=== PATIENT | female | born 1945 | race Caucasian/White ===

== ENCOUNTER 2019-09-14 08:29 | Inpatient (IN) ==
[2019-09-14] MEDS ORDERED: IOPAMIDOL 100 ML BOTTLE IV ONE (08:30)
[2019-09-14] MEDS ORDERED: 0.9 % SODIUM CHLORIDE 1,000 ML IV ONE (08:32)
[2019-09-14] MEDS ORDERED: DIPH,PERTUSS(ACELL),TET VAC/PF 0.5 ML SYRINGE IM ONE (08:33)
[2019-09-14 09:16] LABS: Hematocrit 38.3 % (36.0-48.0); Hemoglobin 12.5 g/dL (12.0-15.0); Mean Cell Volume 87.6 fL (80.0-100.0); Mean Corpuscular HGB Conc 32.7 g/dL (31.0-36.0); Mean Platelet Volume 7.8 fL (7.4-10.4); Platelet Count 224 K/mcL (140-440); RBC 4.37 M/mcL (4.00-5.20); Red Cell Distribution Width 14.7 % (11.5-14.5); WBC 7.3 K/mcL (4.5-11.0)
--- NOTE | 2019-09-14 09:31 | Emergency Department Note ---
Dizziness HPI - General Chief Complaint: Dizziness Stated Complaint: Dizziness, fall Time Seen by Provider: 09/14/19 09:24 Source: patient Mode of arrival: wheelchair Limitations: no limitations - History of Present Illness HPI Narrative: Patient has felt dizzy and lightheaded for the last several days and has fallen a couple of times. She does feel like she injured her left knee with the last fall and has some pain about the knee. Denies any other injuries. She admits not eating or drinking much and that is confirmed by the daughter. She says the last time she felt this way she had a UTI. She said no chest pain cough or shortness of breath and no focal neurologic symptoms. Also no vertigo or headache. - Related Data Home Medications Medication Instructions Recorded Confirmed aspirin 81 mg tablet,delayed 81 mg PO QDAY tab 05/15/15 09/14/19 release lactobacillus combination no.4 3 3,000 mmu cells PO QDAY cap 05/15/15 08/12/19 billion cell capsule cetirizine 10 mg tablet 10 mg PO QAM tab 05/29/17 08/12/19 docusate sodium 50 mg capsule 100 mg PO QDAY cap 07/31/17 08/12/19 multivitamin 1 tab PO QDAY 01/23/18 08/12/19 metoprolol succinate 25 mg 25 mg PO QHS tab 12/10/18 09/14/19 tablet,extended release 24 hr tumeric PO 05/11/19 08/12/19 [id number] 333 mg PO tab 06/09/19 08/12/19 mg-1.7 mg chewable tablet calcium carbonate 500 mg calcium 500 mg PO QDAY tab 06/22/19 08/12/19 (1,250 mg) tablet magnesium 250 mg tablet 250 mg PO QDAY 06/22/19 08/12/19 Chlorthalidone [Hygroton] 25 mg PO DAILY 09/14/19 09/14/19 Previous Rx's Medication Instructions Recorded ferrous sulfate 142 mg (45 mg 142 mg PO QDAY #60 tab 05/05/19 iron) tablet,extended release omeprazole magnesium 20 mg 20 mg PO QDAY #30 cap 06/09/19 capsule,delayed release levothyroxine 50 mcg tablet 50 mcg PO QDAY #90 tab 07/25/19 amlodipine 2.5 mg tablet 2.5 mg PO QDAY PRN #30 tab 07/12/19 cholecalciferol (vitamin D3) 2,000 2,000 unit PO QDAY #100 cap 08/12/19 unit capsule Allergies Allergy/AdvReac Type Severity Reaction Status Date / Time Cortisone Allergy Intermediate Rash Verified 09/14/19 08:31 cephalexin Allergy Unknown Verified 09/14/19 08:31 levofloxacin [From Levaquin] Allergy Itching Verified 09/14/19 08:31 sulfamethoxazole Allergy Rash Verified 09/14/19 08:31 [From Septra] trimethoprim [From Septra] Allergy Rash Verified 09/14/19 08:31 Hydroxychloroquine AdvReac Intermediate facial Verified 09/14/19 08:31 edema acetaminophen AdvReac Mild Other Verified 09/14/19 08:31 [From Lorcet (hydrocodone)] hydrocodone AdvReac Mild Other Verified 09/14/19 08:31 [From Lorcet (hydrocodone)] Review of Systems All systems ED: reviewed and negative except as stated. Past Medical History - Past Medical History PMF Narrative: Medical History (Last Reviewed 08/12/19 @ 09:05 by Jose A Lehman MD) Secondary hyperparathyroidism of renal origin (Chronic) Iron deficiency anemia due to chronic blood loss (Chronic) Iron deficiency anemia (Chronic) CREST (calcinosis, Raynaud's phenomenon, esophageal dysfunction, sclerodactyly, telangiectasia) (Chronic) Generalized weakness (Acute) Ankle fracture, left (Chronic) Hx of colonic polyp (Chronic) Closed fracture of tarsal and metatarsal bones of left foot (Chronic) Hemorrhagic condition (Chronic) Ventral hernia (Chronic) Hyperlipidemia (Chronic) Essential hypertension (Chronic) Hypothyroidism (acquired) (Chronic) Osteopenia (Chronic) Menopausal and postmenopausal disorder (Chronic) Pulmonary embolism (Chronic) Raynauds syndrome (Chronic) Chronic kidney disease (CKD) stage G3a/A1, moderately decreased glomerular filtration rate (GFR) between 45-59 mL/min/1.73 square meter and albuminuria creatinine ratio less than 30 mg/g (Chronic) CKD (chronic kidney disease), stage III (Chronic) Scleroderma (Chronic) Renal dysfunction (Chronic) Hypertension (Chronic) DJD (degenerative joint disease) (Chronic) Hypertensive renal disease (Chronic) Long-term use of immunosuppressant medication (Acute) Cough (Chronic) Past Surgical History (Last Reviewed 05/05/19 @ 16:09 by Jose A Lehman MD) H/O adenoidectomy (Chronic) History of bladder surgery (Chronic) H/O breast biopsy (Chronic) Hx of breast biopsy (Chronic) History of conization of cervix (Chronic) H/O ventral hernia repair (Chronic) History of total abdominal hysterectomy (Chronic) H/O tubal ligation (Chronic) Hx of tonsillectomy (Chronic) History of colonoscopy (Chronic 05/17/17) History of esophagogastroduodenoscopy (EGD) (Chronic 05/17/17) Family History (Last Reviewed 05/05/19 @ 16:09 by Jose A Lehman MD) Father Atherosclerosis of coronary artery Gout Unknown Alzheimer's disease Chronic obstructive pulmonary disease Malignant hypertension Osteoporosis Mother Diabetes mellitus Essential hypertension Osteoporosis Cerebrovascular accident Medical history: Reports: hyperlipidemia, hypertension, renal disease, thyroid disease Surgical history ED: Reports: orthopedic, other - Social History smoking status: Never smoker Alcohol use: Reports: None Drug use: Reports: none Physical Exam Limitations: no limitations General appearance: alert Head: atraumatic, normocephalic Eye: Present: normal appearance, EOMI ENT: Present: normal exam Neck: Present: normal inspection Chest: Present: normal inspection Respiratory: Present: normal lung sounds bilaterally Cardiovascular: Present: regular rate, normal rhythm, normal heart sounds Abdominal: Present: soft. Absent: distention, tenderness Extremities: Present: other (Mild tenderness about the left knee without any swelling.) Motor strength - LUE: 5/5 Motor strength - RUE: 5/5 Psychiatric: Present: normal affect Skin: Present: warm, dry Course Vital Signs Temperature 99.0 F 09/14/19 08:29 Pulse Rate 84 09/14/19 08:29 Respiratory Rate 18 09/14/19 08:29 Blood Pressure 167/102 09/14/19 08:29 Pulse Oximetry (%) 100 09/14/19 08:29 Temperature 97.8 F 09/14/19 09:57 Pulse Rate 91 H 09/14/19 14:02 Respiratory Rate 16 09/14/19 14:02 Blood Pressure 166/70 09/14/19 14:02 Pulse Oximetry (%) 99 09/14/19 14:02 Dizziness - MDM Narrative Medical decision making narrative: This patient has a minor UTI and extensive sinusitis and multiple sinuses on her CT scan. CTA of head and neck were unremarkable with no impairment to cerebellar circulation. However she continues to feel pretty dizzy and her blood pressure has remained quite high. We have treated her with labetalol. She got Rocephin IV for her urinary tract infection and sinusitis. She will be admitted to the hospital by Dr. Momin. - Lab Data Lab results reviewed: Yes I reviewed the patient's lab results. Result diagrams: 09/14/19 08:41 09/14/19 08:41 Lab Results 09/14/19 09/14/19 09/14/19 Range/Units 08:41 08:41 10:00 WBC 7.3 (4.5-11.0) K/mcL RBC 4.37 (4.00-5.20) M/mcL Hgb 12.5 (12.0-15.0) g/dL Hct 38.3 (36.0-48.0) % MCV 87.6 (80.0-100.0) fL MCH 28.7 (26.0-34.0) pg MCHC 32.7 (31.0-36.0) g/dL RDW 14.7 H (11.5-14.5) % Plt Count 224 (140-440) K/mcL MPV 7.8 (7.4-10.4) fL Total Counted 100 Seg Neutrophils % 73 (38-78) % Band Neutrophils % 1 (0-10) % Lymphocytes % 15 (15-49) % Monocytes % (Manual) 7 (1-12) % Eosinophils % (Manual) 4 (0-7) % Platelet Estimate Normal (NORMAL) RBC Morphology Normal (NORMAL) VBG Lactic Acid (0.5-2.0) mmol/L Sodium 141 (133-145) mmol/L Potassium 4.4 (3.3-5.1) mmol/L Chloride 102 (96-108) mmol/L Carbon Dioxide 25 (22-30) mmol/L Anion Gap 14.0 (8-16) BUN 39 H (8-23) mg/dl Creatinine 1.3 H (0.6-1.1) mg/dl GFR Calculation 40 Glucose 132 H (70-105) mg/dL Calcium 9.9 (8.6-10.4) mg/dl Total Bilirubin 0.3 (0.0-1.0) mg/dL AST 18 (0-37) U/l ALT 14 (0-40) U/l Alkaline Phosphatase 49 (39-117) U/L Troponin T (0-0.03) ng/ml Total Protein 7.9 (5.9-8.4) gm/dL Albumin 4.6 (3.2-5.2) gm/dL Globulin 3.3 (2.2-3.7) gm/dL Albumin/Globulin Ratio 1.4 (1.0-2.3) Urine Color Straw Urine Appearance Clear Urine pH 7.0 (5.0-9.0) Ur Specific [place] 1.010 (1.000-1.035) Urine Protein Neg (NEG) mg/dL Urine Glucose (UA) Negative (NEG) mg/dL Urine Ketones Neg (NEG) mg/dL Urine Occult Blood 0.03 A (<0.03) mg/dL Urine Nitrate Neg (NEG) Urine Bilirubin Neg (NEG) mg/dL Urine Urobilinogen Neg (NEG) mg/dL Ur Leukocyte Esterase 75 A (NEG) /uL Urine RBC 2 H (0-1) /hpf Urine WBC 15 H (0-4) /hpf Ur Squamous Epith Cells 0 (0-4) /hpf Ur Transition Epith Cell < 1 (0-2) /hpf Urine Bacteria Few A (0) /hpf Urine Mucus Few (0) /hpf Ur Culture Indicated? Yes 09/14/19 09/14/19 Range/Units 12:59 Unknown WBC (4.5-11.0) K/mcL RBC (4.00-5.20) M/mcL Hgb (12.0-15.0) g/dL Hct (36.0-48.0) % MCV (80.0-100.0) fL MCH (26.0-34.0) pg MCHC (31.0-36.0) g/dL RDW (11.5-14.5) % Plt Count (140-440) K/mcL MPV (7.4-10.4) fL Total Counted Seg Neutrophils % (38-78) % Band Neutrophils % (0-10) % Lymphocytes % (15-49) % Monocytes % (Manual) (1-12) % Eosinophils % (Manual) (0-7) % Platelet Estimate (NORMAL) RBC Morphology (NORMAL) VBG Lactic Acid 1.3 (0.5-2.0) mmol/L Sodium (133-145) mmol/L Potassium (3.3-5.1) mmol/L Chloride (96-108) mmol/L Carbon Dioxide (22-30) mmol/L Anion Gap (8-16) BUN (8-23) mg/dl Creatinine (0.6-1.1) mg/dl GFR Calculation Glucose (70-105) mg/dL Calcium (8.6-10.4) mg/dl Total Bilirubin (0.0-1.0) mg/dL AST (0-37) U/l ALT (0-40) U/l Alkaline Phosphatase (39-117) U/L Troponin T < 0.01 (0-0.03) ng/ml Total Protein (5.9-8.4) gm/dL Albumin (3.2-5.2) gm/dL Globulin (2.2-3.7) gm/dL Albumin/Globulin Ratio (1.0-2.3) Urine Color Urine Appearance Urine pH (5.0-9.0) Ur Specific [place] (1.000-1.035) Urine Protein (NEG) mg/dL Urine Glucose (UA) (NEG) mg/dL Urine Ketones (NEG) mg/dL Urine Occult Blood (<0.03) mg/dL Urine Nitrate (NEG) Urine Bilirubin (NEG) mg/dL Urine Urobilinogen (NEG) mg/dL Ur Leukocyte Esterase (NEG) /uL Urine RBC (0-1) /hpf Urine WBC (0-4) /hpf Ur Squamous Epith Cells (0-4) /hpf Ur Transition Epith Cell (0-2) /hpf Urine Bacteria (0) /hpf Urine Mucus (0) /hpf Ur Culture Indicated? - Radiology Data Radiology results reviewed: Yes I reviewed the patient's radiology results. Disposition Pt seen by [facility]/PA only: No Clinical Impression: UTI (urinary tract infection), Sinusitis, Dizziness Disposition: Xfer As Outpt/Obs ([facility]) Condition: Good Referrals: Ángel Cabrera PA-C [Primary Care Provider] - Time of Disposition: 14:45
[2019-09-14 09:36] LABS: ALT/SGPT 14 U/l (0-40); AST/SGOT 18 U/l (0-37); Albumin 4.6 gm/dL (3.2-5.2); Albumin/Globulin Ratio 1.4 (1.0-2.3); Alkaline Phosphatase 49 U/L (39-117); Bilirubin,Total 0.3 mg/dL (0.0-1.0); Blood Urea Nitrogen 39 mg/dl (8-23); Calcium 9.9 mg/dl (8.6-10.4); Carbon Dioxide 25 mmol/L (22-30); Chloride 102 mmol/L (96-108); Globulin 3.3 gm/dL (2.2-3.7); Glomerular Filtration Rate 40; Glucose 132 mg/dL (70-105)
[2019-09-14] MEDS ORDERED: LABETALOL 5 MG/ML ML IV ONE ×2 (09:49→13:40)
[2019-09-14] MEDS ORDERED: ACETAMINOPHEN 325 MG TABLET PO ONE (09:59)
[2019-09-14 10:03] LABS: Band Neutrophils % 1 % (0-10); Eosinophils % (Manual) 4 % (0-7); Lymphocytes % 15 % (15-49); Monocytes % (Manual) 7 % (1-12); Platelet Estimate NORMAL (NORMAL); RBC Morphology NORMAL (NORMAL); Segmented Neutrophils % 73 % (38-78)
--- NOTE | 2019-09-14 10:35 | XRay Report ---
CLINICAL INFORMATION: Fall. Abrasion. Knee pain. TECHNIQUE: AP, oblique, crosstable lateral left knee COMPARISON: None. FINDINGS: No left knee fracture. No plain film evidence for significant joint effusion. No lipohemarthrosis. No osteochondral lesion. Moderate degenerative narrowing of the patellofemoral joint. Mild degenerative narrowing of the medial femoral tibial joint. IMPRESSION: 1. Degenerative joint disease 2. No acute abnormality Interpreted and Authenticated by: Doron Padgett 09/14/19
[2019-09-14 11:06] LABS: Appearance,Urine CLEAR; Bacteria,Urine FEW /hpf (0); Bilirubin,Urine NEG (NEG); Color,Urine STRAW; Culture Indicated,Urine YES; Glucose,Urine (UA) NEGATIVE (NEG); Ketones,Urine NEG (NEG); Leukocyte Esterase,Urine 75 /uL (NEG); Mucus,Urine FEW /hpf (0); Nitrate,Urine NEG (NEG); Protein,Urine NEG (NEG); Urine Blood 0.03 mg/dL (<0.03); Urine RBC 2 /hpf (0-1); Urine Squamous Epithelial Cell 0 /hpf (0-4); Urine Transitional Epi Cells < 1 /hpf (0-2); Urine WBC 15 /hpf (0-4); Urobilinogen,Urine NEG (NEG)
[2019-09-14] MEDS ORDERED: NITROFURANTOIN SR 100 MG CAPSULE PO ONE (12:20)
[2019-09-14] MEDS ORDERED: LACTATED RINGERS 1,000 ML IV ONE (12:32)
--- NOTE | 2019-09-14 13:08 | Cat Scan Report ---
CLINICAL INFORMATION: Dizziness TECHNIQUE: Axial noncontrast enhanced images through the brain. Sagittal and coronal reformatted images COMPARISON: Previous CT scan of the paranasal sinuses dated 11/07/2016 FINDINGS: No acute intracranial hemorrhage. No subdural hemorrhage or subarachnoid hemorrhage. Intra-axial hematoma. No focal intra-axial attenuation abnormality or localized mass effect. No midline shift. Brain volume is within normal limits. Brainstem and cerebellum are negative. Basilar cisterns are normal. There is opacification of right frontal sinuses. There is inflammatory disease within the ethmoid sinuses and sphenoid sinuses. There is an air-fluid level in the right maxillary sinus. There is soft tissue abnormality filling the left maxillary sinus. Appearance is consistent with extensive sinusitis. Temporal bones are negative. No calvarial fracture. No lytic lesion. IMPRESSION: 1. Sinusitis 2. No intracranial abnormality. Interpreted and Authenticated by: Doron Padgett 09/14/19
--- NOTE | 2019-09-14 13:19 | Cat Scan Report ---
CLINICAL INFORMATION: Dizziness TECHNIQUE: Intravenous contrast material was injected. Routine CTA of the neck and head performed. Sagittal and coronal reformatted images. MPR reformatted images COMPARISON: Brain CT scan dated 09/14/2019 FINDINGS: There is calcified atherosclerotic plaque in the aortic arch. There is mild noncalcified plaque. No stenosis at the origin of the left subclavian artery, left common carotid artery, not a minor, right common carotid artery, right subclavian artery. Left vertebral artery origin is normal. Right vertebral artery is a small caliber vessel. No stenosis. Vertebral arteries are patent. There is no dissection or occlusion. Basilar artery is negative. No stenosis. There is calcified plaque at the origin of the left internal carotid artery. There is no hemodynamically significant stenosis. There is calcified and noncalcified plaque at the origin of the right internal carotid artery. No stenosis of greater than 50% diameter. No evidence for ulceration. Petrous and cavernous segments of the internal carotid arteries are patent and normal. Supraclinoid segments are normal. M1 segments and middle cerebral arteries and A1 segments anterior cerebral arteries are negative. P1 segments posterior cerebral arteries are negative. Right posterior communicating artery is patent. No intracranial aneurysm. No arteriovenous malformation. Extensive sinusitis changes of the previously described. There is an air-fluid level in the right maxillary sinus consistent with acute maxillary sinusitis. Inflammatory disease within frontal, ethmoid, sphenoid, and maxillary sinuses bilaterally. No cervical soft tissue mass. Lung apices are negative. IMPRESSION: 1. Atherosclerotic plaque as above. There is calcified and noncalcified plaque at the origin of the right internal carotid artery. There is calcified plaque at the origin of the left internal carotid artery 2. No hemodynamically significant stenosis. No evidence for dissection or occlusion 3. Sinusitis Interpreted and Authenticated by: Doron Padgett 09/14/19
[2019-09-14] MEDS ORDERED: cefTRIAXone 1 GM VIAL IV ONE (13:32)
--- NOTE | 2019-09-14 15:29 | Internal Med History&Physical ---
Medical - H&P: HPI Patient information: Note initiated : 09/14/19 at 3:28 pm Service Date, if different from initiated Date: [] Patient: Carmen Fleming a 74 y/o F admitted on for Dizziness, fall. Chief Complaint: [] Chief complaint: Dizziness and shaky. Fall History of present illness: Ms. Fleming is a 74 year old F with a history of scleroderma/hypertension and chronic kidney disease who usually follows up with arthritis Ward and nephrology for medical issues. Patient has been in her baseline state of health with suboptimally controlled hypertension. Over the last couple of days patient has been getting progressively dizzy. She sustained a fall injuring her left knee. However there is no loss of consciousness or seizure-like episode. She further denied thunderclap head ache/chest palpitation or chest pain during that episode. She describes her symptoms as weakness and lightheadedness with minimal head movement but no vertigo or spinning sensation or associated hearing loss. She denies prior similar episodes. Dizziness have progressed to the point she could barely function and prompted her to come to the ER. Initial work-up in the ER was essentially unremarkable with a negative CT head/CT angiogram head and neck. Although her blood pressures remained elevated over 200-220. She received 2 doses of labetalol with resultant improvement in systolics around 190s. Her dizziness since has improved. Subsequently hospitalist service was consulted in the setting of persistent hypertension and dizziness. At the time of evaluation patient is accompanied with her daughter. She was able to answer most of the question and endorsed to history as above. She d enies recent NSAID intake or missing her regular medications. She endorses to suboptimally controlled hypertension when her systolics remains around 1 50-1 60. She says any time she has a blood pressure around 120 or lower she gets lightheaded in the past had had a fainting episode. She is currently on amlodipine 2.5/metoprolol 25 dose of which were lowered after the episode of syncope in the past. Other than that she denies fever, chills, lower extremity swelling, diarrhea, dysuria Review of systems A 10 point review of system was performed and is negative except for one discussed above Medical - H&P: PMH Medical history: Iron deficiency anemia due to chronic blood loss (Chronic) EGD with mild gastritis, no H. pylorie or pathologic changes suggestive of CREST On supplimental Fe Iron deficiency anemia (Chronic) CREST (calcinosis, Raynaud's phenomenon, esophageal dysfunction, sclerodactyly, telangiectasia) (Chronic) Generalized weakness (Acute) Ankle fracture, left (Chronic) Hx of colonic polyp (Chronic) Closed fracture of tarsal and metatarsal bones of left foot (Chronic) Hemorrhagic condition (Chronic) Ventral hernia (Chronic) Hyperlipidemia (Chronic) Essential hypertension (Chronic) BP elevated today has been normal before she will keep a BP log, she will call us if the BP is more than 140/90 persis tently will follow and optimize low sodium diet discussed ct propranolol Hypothyroidism (acquired) (Chronic) Osteopenia (Chronic) Menopausal and postmenopausal disorder (Chronic) Pulmonary embolism (Chronic) Raynauds syndrome (Chronic) Chronic kidney disease (CKD) stage G3a/A1, moderately decreased glomerular filtration rate (GFR) between 45-59 mL/min/1.73 square meter and albuminuria creatinine ratio less than 30 mg/g (Chronic) CKD (chronic kidney disease), stage III (Chronic) Scleroderma (Chronic) Renal dysfunction (Chronic) Hypertension (Chronic) BP elevated at home, not at goal in the office today as well will start with ambulatory BP monitoring will follow and optimize meds as needed DJD (degenerative joint disease) (Chronic) Hypertensive renal disease (Chronic) Long-term use of immunosuppressant medication (Acute) Cough (Chronic) Surgical History H/O adenoidectomy (Chronic) History of bladder surgery (Chronic) H/O breast biopsy (Chronic) left Hx of breast biopsy (Chronic) right History of conization of cervix (Chronic) post cervical BX no cancer H/O ventral hernia repair (Chronic) 3 times History of total abdominal hysterectomy (Chronic) H/O tubal ligation (Chronic) Hx of tonsillectomy (Chronic) History of colonoscopy (Chronic 05/17/17) History of esophagogastroduodenoscopy (EGD) (Chronic 05/17/17) Family History Father , 87 years old Atherosclerosis of coronary artery Gout Unknown Alzheimer's disease Chronic obstructive pulmonary disease Malignant hypertension Osteoporosis Mother Diabetes mellitus Essential hypertension Osteoporosis Cerebrovascular accident Social History marital status: education level: college smoking status: Never smoker alcohol intake frequency: does not drink substance use type: does not use Medical - H&P: Meds Home Medications Medication Instructions Recorded Confirmed Type aspirin 81 mg tablet,delayed 81 mg PO QDAY tab 05/15/15 09/14/19 History release docusate sodium 50 mg capsule 100 mg PO QDAY cap 07/31/17 09/14/19 History multivitamin 1 tab PO QDAY 01/23/18 09/14/19 History metoprolol succinate 25 mg 50 mg PO QHS tab 12/10/18 09/14/19 History tablet,extended release 24 hr ferrous sulfate 142 mg (45 mg 142 mg PO QDAY #60 tab 05/05/19 09/14/19 Rx iron) tablet,extended release tumeric 1,000 PO 05/11/19 08/12/19 History omeprazole magnesium 20 mg 20 mg PO QDAY #30 cap 06/09/19 09/14/19 Rx capsule,delayed release levothyroxine 50 mcg tablet 50 mcg PO QDAY #90 tab 06/17/19 09/14/19 Rx amlodipine 2.5 mg tablet 2.5 mg PO QDAY PRN #30 tab 07/12/19 09/14/19 Rx cholecalciferol (vitamin D3) 2,000 2,000 unit PO QDAY #100 cap 08/12/19 09/14/19 Rx unit capsule L.acidoph,Paracasei, B.lactis 1 each PO DAILY 09/14/19 09/14/19 History [Probiotic] Loratadine [Allerclear] 10 mg PO DAILY 09/14/19 09/14/19 History Allergies Allergy/AdvReac Type Severity Reaction Status Date / Time Cortisone Allergy Intermediate Rash Verified 09/14/19 08:31 cephalexin Allergy Unknown Verified 09/14/19 08:31 levofloxacin [From Levaquin] Allergy Itching Verified 09/14/19 08:31 sulfamethoxazole Allergy Rash Verified 09/14/19 08:31 [From Septra] trimethoprim [From Septra] Allergy Rash Verified 09/14/19 08:31 Hydroxychloroquine AdvReac Intermediate facial Verified 09/14/19 08:31 edema hydrocodone AdvReac Mild Other Verified 09/14/19 08:31 [From Lorcet (hydrocodone)] Medical - H&P: Exam - Constitutional Vitals: Temp Pulse Resp BP Pulse Ox 97.8 F 85 12 181/81 96 09/14/19 09:57 09/14/19 15:01 09/14/19 15:01 09/14/19 15:01 09/14/19 15:01 General appearance: no acute distress Exam: Slightly anxious Head normocephalic Eye movement symmetrical Oral cavity dry No ear nose discharge Neck no lymphadenopathy or JVD or bruit S1-S2 regular rhythm hyperdynamic heart sounds with ESM grade 1 Diminished breath sounds bases Abdomen soft nontender nondistended, epigastric abdominal bruit noted Lower extremity no cyanosis clubbing no joint swelling Skin no suspicious lesion Psych alert cooperative but anxious Neuro nonfocal Medical - H&P: Reslt - Labs CBC & Chem 7: 09/14/19 08:41 09/14/19 08:41 Labs: Short CBC 09/14/19 Range/Units 08:41 WBC 7.3 (4.5-11.0) K/mcL Hgb 12.5 (12.0-15.0) g/dL Hct 38.3 (36.0-48.0) % Plt Count 224 (140-440) K/mcL BMP 09/14/19 08:41 Sodium 141 Potassium 4.4 Chloride 102 Carbon Dioxide 25 BUN 39 H Creatinine 1.3 H Glucose 132 H Calcium 9.9 Cardiac Enzymes 09/14/19 Range/Units Unknown Troponin T < 0.01 (0-0.03) ng/ml Liver Function 09/14/19 Range/Units 08:41 Total Bilirubin 0.3 (0.0-1.0) mg/dL AST 18 (0-37) U/l ALT 14 (0-40) U/l Alkaline Phosphatase 49 (39-117) U/L Albumin 4.6 (3.2-5.2) gm/dL Urine 09/14/19 Range/Units 10:00 Urine Color Straw Urine Appearance Clear Urine pH 7.0 (5.0-9.0) Ur Specific [place] 1.010 (1.000-1.035) Urine Protein Neg (NEG) mg/dL Urine Glucose (UA) Negative (NEG) mg/dL Medical - H&P: A/P (1) Hypertensive urgency Current visit: Yes Status: Acute * Hypertensive urgency-with evidence of endorgan dysfunction including dizziness. Target systolic reduction 20% to around 1 40-1 50. Start nicardipine drip. Consult nephrology for optimization and up titration of existing medications. Telemetry admission and observation for 24 to 48 hours * History of scleroderma/crest syndrome managed by arthritis [facility]. Currently stable * Hypothyroidism continue thyroxine * Iron deficiency anemia on ferrous sulfate * GERD continue PPI * History of CKD stage IIIa secondary to hypertensive nephrosclerosis managed by nephrology. * Full code * Prophylaxis heparin Plan * Observation telemetry admit * Nephrology consult * Nicardipine drip and titrate to effect * Pre-existing medical condition management on home meds * PT OT
[2019-09-14] MEDS ORDERED: MAGNESIUM SULFATE 2 GM/50 ML BAG IV PRN (15:53)
[2019-09-14] MEDS ORDERED: POTASSIUM CHLORIDE 20 MEQ PACKET PO PRN (15:53)
[2019-09-14] MEDS ORDERED: amLODIPine 5 MG TABLET PO PRN (15:53)
[2019-09-14] MEDS ORDERED: ONDANSETRON 4 MG/2 ML VIAL IV PRN (15:53)
[2019-09-14] MEDS ORDERED: hydrALAZINE 20 MG/ML VIAL IV PRN (15:53)
[2019-09-14] MEDS: 0.9 % SODIUM CHLORIDE 10 ML SYRINGE IV SCH ×2 (16:15→21:12)
[2019-09-14] MEDS: niCARdipine 25 MG in 0.9 % SODIUM CHLORIDE 240 ML IV SCH (16:17)
[2019-09-14] MEDS: ACETAMINOPHEN 325 MG TABLET PO PRN (16:31)
--- NOTE | 2019-09-14 17:24 | Nephrology Consult Note ---
History of Present Illness - Reason for Consult Patient information: Note initiated : 09/14/19 at 5:22 pm Patient: Carmen Fleming 74 y/o F admitted on 09/14/19 for Dizziness, fall. Consult date: 09/14/19 chronic renal failure, accelerated hypertension Requesting physician: Horace Franco - Chief Complaint Dizziness - History of Present Illness Carmen Fleming is a 74-year-old female with scleroderma (CREST with (+)Raynauds phenomena, positive NICOLA, positive SCL 70), hypertrophic cardiomyopathy (Echo on 06/10/16: LVEF 65%), hypertension, hyperlipidemia, hypothyroidism, chronic kidney disease stage 3, presented to ED for dizziness and fall on 09/14/19 and admitted for hypertensive urgency with evidence of end organ dysfunction including dizziness.At the time of my evaluation, she was in ICU on Nicardipine drip. BP was 175/81. She was last seen by Dr. Lehman (nephrology) on 08/11/[address] Patino (cardi ology) on 05/13/19. She has been on Amlodipine 2.5 mg daily as needed and Metoprolol succinate 25 mg daily. Review of Systems Constitutional: fatigue, weakness Nose, mouth and throat: no nasal congestion, no sore throat Cardiovascular: no chest pain, no palpatations Respiratory: no cough, no dyspnea Gastrointestinal: no abdominal pain, no diarrhea Genitourinary: no dysuria, no hematuria Integumentary: no rash, no wounds Neurological: dizziness, no confusion Psychiatric: no anxiety, no panic attacks Endocrine: no cold intolerance, no heat intolerance Hematologic/Lymphatic: no easy bleeding, no easy bruising Allergic/Immunologic: no tongue swelling, no uticaria Past History Past medical history: Medical History (Last Reviewed 08/12/19 @ 09:05 by Jose A Lehman MD) Secondary hyperparathyroidism of renal origin (Chronic) Iron deficiency anemia due to chronic blood loss (Chronic) Iron deficiency anemia (Chronic) CREST (calcinosis, Raynaud's phenomenon, esophageal dysfunction, sclerodactyly, telangiectasia) (Chronic) Generalized weakness (Acute) Ankle fracture, left (Chronic) Hx of colonic polyp (Chronic) Closed fracture of tarsal and metatarsal bones of left foot (Chronic) Hemorrhagic condition (Chronic) Ventral hernia (Chronic) Hyperlipidemia (Chronic) Essential hypertension (Chronic) Hypothyroidism (acquired) (Chronic) Osteopenia (Chronic) Menopausal and postmenopausal disorder (Chronic) Pulmonary embolism (Chronic) Raynauds syndrome (Chronic) Chronic kidney disease (CKD) stage G3a/A1, moderately decreased glomerular filtration rate (GFR) between 45-59 mL/min/1.73 square meter and albuminuria creatinine ratio less than 30 mg/g (Chronic) CKD (chronic kidney disease), stage III (Chronic) Scleroderma (Chronic) Renal dysfunction (Chronic) Hypertension (Chronic) DJD (degenerative joint disease) (Chronic) Hypertensive renal disease (Chronic) Long-term use of immunosuppressant medication (Acute) Cough (Chronic) Past surgical history: Past Surgical History (Last Reviewed 05/05/19 @ 16:09 by Jose A Lehman MD) H/O adenoidectomy (Chronic) History of bladder surgery (Chronic) H/O breast biopsy (Chronic) Hx of breast biopsy (Chronic) History of conization of cervix (Chronic) H/O ventral hernia repair (Chronic) History of total abdominal hysterectomy (Chronic) H/O tubal ligation (Chronic) Hx of tonsillectomy (Chronic) History of colonoscopy (Chronic 05/17/17) History of esophagogastroduodenoscopy (EGD) (Chronic 05/17/17) Past family history: Family History (Last Reviewed 05/05/19 @ 16:09 by Jose A Lehman MD) Father Atherosclerosis of coronary artery Gout Unknown Alzheimer's disease Chronic obstructive pulmonary disease Malignant hypertension Osteoporosis Mother Diabetes mellitus Essential hypertension Osteoporosis Cerebrovascular accident Past social history: Never smoker Medications and Allergies Home Medications Medication Instructions Recorded Confirmed Type aspirin 81 mg tablet,delayed 81 mg PO QDAY tab 05/15/15 09/14/19 History release docusate sodium 50 mg capsule 100 mg PO QDAY cap 07/31/17 09/14/19 History multivitamin 1 tab PO QDAY 01/23/18 09/14/19 History metoprolol succinate 25 mg 50 mg PO QHS tab 12/10/18 09/14/19 History tablet,extended release 24 hr ferrous sulfate 142 mg (45 mg 142 mg PO QDAY #60 tab 05/05/19 09/14/19 Rx iron) tablet,extended release tumeric 1,000 PO 05/11/19 08/12/19 History omeprazole magnesium 20 mg 20 mg PO QDAY #30 cap 06/09/19 09/14/19 Rx capsule,delayed release levothyroxine 50 mcg tablet 50 mcg PO QDAY #90 tab 06/17/19 09/14/19 Rx amlodipine 2.5 mg tablet 2.5 mg PO QDAY PRN #30 tab 07/12/19 09/14/19 Rx cholecalciferol (vitamin D3) 2,000 2,000 unit PO QDAY #100 cap 08/12/19 09/14/19 Rx unit capsule L.acidoph,Paracasei, B.lactis 1 each PO DAILY 09/14/19 09/14/19 History [Probiotic] Loratadine [Allerclear] 10 mg PO DAILY 09/14/19 09/14/19 History Allergies Allergy/AdvReac Type Severity Reaction Status Date / Time Cortisone Allergy Intermediate Rash Verified 09/14/19 08:31 cephalexin Allergy Unknown Verified 09/14/19 08:31 levofloxacin [From Levaquin] Allergy Itching Verified 09/14/19 08:31 sulfamethoxazole Allergy Rash Verified 09/14/19 08:31 [From Septra] trimethoprim [From Septra] Allergy Rash Verified 09/14/19 08:31 Hydroxychloroquine AdvReac Intermediate facial Verified 09/14/19 08:31 edema hydrocodone AdvReac Mild Other Verified 09/14/19 08:31 [From Lorcet (hydrocodone)] Exam - Vital Signs Vital signs: Temp Pulse Resp BP Pulse Ox 98.0 F 87 15 175/81 99 09/14/19 16:10 09/14/19 17:01 09/14/19 17:06 09/14/19 17:06 09/14/19 17:01 - General Appearance General appearance: appears started age, fatigue EENT: mucous membranes moist Neck: no JVD Respiratory: clear Cardiology: no edema Gastrointestinal: no tenderness Integumentary: warm and dry Neurologic: no focal deficit, alert and oriented x3 Musculoskeletal: no deformities Psychiatric: mood/affect appropriate, cooperative Results - Lab Results 09/14/19 08:41 09/14/19 08:41 Most recent lab results Calcium 9.9 mg/dl (8.6-10.4) 09/14/19 08:41 Assessment and Plan (1) Hypertensive urgency Carmen Fleming is a 74-year-old female with scleroderma (CREST with (+)Raynauds phenomena, positive NICOLA, positive SCL 70), hypertrophic cardiomyopathy (Echo on 06/10/16: LVEF 65%), hypertension, hyperlipidemia, hypothyroidism, chronic kidney disease stage 3, presented to ED for dizziness and fall on 09/14/19 and admitted for hypertensive urgency with evidence of end organ dysfunction including dizziness.At the time of my evaluation, she was in ICU on Nicardipine drip. BP was 175/81. She was last seen by Dr. Lehman (nephrology) on 08/11/[address] Patino (cardiology) on 05/13/19. She has been on Amlodipine 2.5 mg daily as needed and Metoprolol succinate 25 mg daily. Hypertensive urgency with chronic kidney disease stage 3, present on arrival. There is no recent history of NSAID use. Work up: Urinalysis on 09/14/19: Straw, Clear, pH 7.0, SG 1.010, protein negative, occult blood 0.03, leukocyte esterase 75, urine WBC 15. Renal US on 11/29/15: Negative. Treatment: Nicardipine drip. Amlodipine 5 mg daily. Metoprolol succinate 50 mg daily. Chlorthalidone 25 mg daily. Recommendations: Continue current advanced antihypertensive regimen. Status: Acute Priority: High (2) CKD (chronic kidney disease), stage III Please see above. Status: Chronic Priority: Medium
[2019-09-14] MEDS ORDERED: HEPARIN 5,000 UNIT/ML VIAL SQ SCH (21:00)
[2019-09-14] MEDS: METOPROLOL SUCCINATE 50 MG TAB.XL.24H PO SCH (21:12)
[2019-09-14] MEDS: CYANOCOBALAMIN (VITAMIN B-12) 500 MCG TABLET PO SCH (21:12)
[2019-09-14] MEDS: DOCUSATE SODIUM 100 MG CAPSULE PO SCH (21:12)
[2019-09-14] MEDS: SENNOSIDES/DOCUSATE SODIUM 1 TAB TABLET PO SCH (23:13)
[2019-09-14] MEDS: MELATONIN 3 MG TABLET PO PRN (23:45)
[2019-09-15] MEDS: niCARdipine 25 MG in 0.9 % SODIUM CHLORIDE 240 ML IV SCH (04:13)
[2019-09-15] MEDS: 0.9 % SODIUM CHLORIDE 10 ML SYRINGE IV SCH ×3 (04:51→23:22)
[2019-09-15 05:19] LABS: Hematocrit 34.2 % (36.0-48.0); Hemoglobin 11.4 g/dL (12.0-15.0); Mean Cell Volume 88.9 fL (80.0-100.0); Mean Corpuscular HGB Conc 33.3 g/dL (31.0-36.0); Mean Platelet Volume 7.6 fL (7.4-10.4); Platelet Count 191 K/mcL (140-440); RBC 3.84 M/mcL (4.00-5.20); Red Cell Distribution Width 14.8 % (11.5-14.5)
[2019-09-15 05:44] LABS: ALT/SGPT 12 U/l (0-40); AST/SGOT 18 U/l (0-37); Albumin 3.6 gm/dL (3.2-5.2); Albumin/Globulin Ratio 1.3 (1.0-2.3); Alkaline Phosphatase 42 U/L (39-117); Bilirubin,Direct < 0.2 mg/dL (0.0-0.3); Bilirubin,Total 0.3 mg/dL (0.0-1.0); Blood Urea Nitrogen 31 mg/dl (8-23); Calcium 9.1 mg/dl (8.6-10.4); Carbon Dioxide 24 mmol/L (22-30); Chloride 104 mmol/L (96-108); Globulin 2.8 gm/dL (2.2-3.7); Glomerular Filtration Rate 49; Glucose 107 mg/dL (70-105); Lactate Dehydrogenase 188 U/L (94-250); Phosphorous 3.7 mg/dL (2.7-4.5); Triglycerides 80 mg/dl (<150); Uric Acid 4.8 mg/dL (2.5-8.0)
[2019-09-15 06:02] LABS: Eosinophils % (Manual) 3 % (0-7); Lymphocytes % 24 % (15-49); Monocytes % (Manual) 7 % (1-12); Platelet Estimate NORMAL (NORMAL); RBC Morphology NORMAL (NORMAL); Segmented Neutrophils % 66 % (38-78)
--- NOTE | 2019-09-15 06:11 | Nephrology Progress Note ---
Subjective Patient information: Note initiated : 09/15/19 at 6:09 a Patient: Carmen Fleming 74 y/o F admitted on 09/14/19 for Dizziness, fall. Chief Complaint: Weakness Pertinent ROS: Dizziness No edema No headache Objective - Vital Signs Vital signs: Vital Signs Temp Pulse Resp BP BP BP Pulse Ox 09/15/19 04:01 98.4 F 66 17 136/69 94 09/15/19 03:01 59 L 14 123/52 94 09/15/19 02:01 62 18 131/55 95 09/15/19 01:41 65 16 128/56 95 09/15/19 01:01 65 16 111/50 94 09/15/19 00:33 83 16 140/83 99 09/15/19 00:12 76 15 164/65 96 09/15/19 00:01 98.1 F 78 14 170/59 94 09/14/19 23:32 16 127/100 09/14/19 23:16 109/51 09/14/19 23:01 18 100/43 09/14/19 22:46 19 116/42 09/14/19 22:31 125/50 09/14/19 22:16 16 120/48 09/14/19 22:01 18 127/71 09/14/19 21:46 17 124/62 09/14/19 21:31 21 127/69 09/14/19 21:16 23 H 134/71 09/14/19 21:01 14 151/78 09/14/19 20:56 21 128/64 09/14/19 20:51 21 146/70 09/14/19 20:46 16 127/65 09/14/19 20:41 14 132/91 09/14/19 20:36 16 134/89 09/14/19 20:31 14 138/73 09/14/19 20:27 21 09/14/19 20:26 13 143/72 09/14/19 20:21 16 112/70 09/14/19 20:16 19 139/71 09/14/19 20:11 21 143/73 09/14/19 20:08 29 H 138/70 09/14/19 20:06 14 145/74 09/14/19 20:01 98.1 F 22 134/59 09/14/19 19:46 13 135/85 09/14/19 19:30 18 146/79 09/14/19 19:16 18 124/73 09/14/19 19:01 16 141/70 09/14/19 18:46 21 150/80 09/14/19 18:33 15 114/64 09/14/19 18:32 17 108/97 09/14/19 18:16 15 149/85 09/14/19 18:01 93 H 16 153/80 99 09/14/19 17:46 88 17 137/75 98 09/14/19 17:33 88 14 140/81 97 09/14/19 17:16 23 H 160/69 09/14/19 17:06 15 175/81 09/14/19 17:01 87 21 175/85 99 09/14/19 16:56 84 17 172/81 100 09/14/19 16:51 19 169/94 09/14/19 16:46 86 14 161/96 93 09/14/19 16:41 88 16 174/85 100 09/14/19 16:36 86 15 158/74 99 09/14/19 16:31 90 14 174/81 99 09/14/19 16:26 87 14 183/84 99 09/14/19 16:22 86 14 203/92 99 09/14/19 16:10 98.0 F 21 199/89 09/14/19 15:58 84 13 176/83 96 09/14/19 15:48 98.8 F 16 203/92 99 09/14/19 15:46 84 13 176/83 96 09/14/19 15:31 81 14 175/87 97 09/14/19 15:16 90 17 184/84 97 09/14/19 15:01 85 12 181/81 96 09/14/19 14:46 87 16 184/89 96 09/14/19 14:02 91 H 16 166/70 99 09/14/19 13:44 198/98 09/14/19 13:31 89 17 205/89 91 09/14/19 13:16 87 15 201/82 99 09/14/19 12:31 93 H 17 179/88 98 09/14/19 12:16 84 13 170/81 97 09/14/19 12:01 86 17 180/96 97 09/14/19 11:46 88 16 178/73 98 09/14/19 11:31 100 H 21 145/80 96 09/14/19 11:16 81 15 152/79 97 09/14/19 11:01 87 20 162/85 98 09/14/19 10:46 86 16 175/96 98 09/14/19 10:31 81 13 168/81 98 09/14/19 10:16 88 185/94 98 09/14/19 10:01 86 11 L 200/95 99 09/14/19 09:57 97.8 F 184/96 194/98 09/14/19 09:46 86 15 212/97 99 09/14/19 09:31 84 15 196/96 100 09/14/19 09:16 78 21 189/77 99 09/14/19 09:01 13 180/80 09/14/19 08:48 81 14 194/95 100 09/14/19 08:45 80 15 194/95 100 09/14/19 08:29 99.0 F 84 18 167/102 100 Intake and Output 09/14/19 09/15/19 09/15/19 21:59 05:59 13:59 Intake Total 1305 210 Output Total 1175 826 Balance 130 -616 Intake: IV 1065 Lactated Ringers 1,000 ml @ 1000 Wide Open IV BOLUS ONE Rx#: [id number] Cardene 25 MG In Sodium 65 Chloride 0.9% 240 ml @ 5 MG/HR 50 mls/hr IV Q12H SAS[facility] Rx#: [id number] Oral 240 210 Output: Void Amount 1175 825 # of times incontinent of urine 1 Other: Meal Dinner Percent of Meal Consumed 50% Urine Appearance Clear Urine Color Dark Yellow Urine Odor Normal Weight 133 lb 9.6 oz Intake & Output: Intake & Output 09/14/19 09/15/19 09/15/19 21:59 05:59 13:59 Intake Total 1305 210 Output Total 1175 826 Balance 130 -616 Weight 133 lb 9.6 oz Intake: IV 1065 Lactated Ringers 1,000 ml @ 1000 Wide Open IV BOLUS ONE Rx#: [id number] Cardene 25 MG In Sodium 65 Chloride 0.9% 240 ml @ 5 MG/HR 50 mls/hr IV Q12H [facility] Rx#: [id number] Oral 240 210 Output: Void Amount 1175 825 # of times incontinent of urine 1 Other: Meal Dinner Percent of Meal Consumed 50% Urine Appearance Clear Urine Color Dark Yellow Urine Odor Normal - General Appearance General appearance: appears started age, fatigue EENT: mucous membranes moist Neck: no JVD Respiratory: clear Cardiology: no edema Gastrointestinal: no tenderness Integumentary: warm and dry Neurologic: no focal deficit, alert and oriented x3 Musculoskeletal: no deformities Psychiatric: mood/affect appropriate, cooperative - Lab 09/15/19 04:25 09/15/19 04:25 Most recent lab results Calcium 9.1 mg/dl (8.6-10.4) 09/15/19 04:25 Phosphorus 3.7 mg/dL (2.7-4.5) 09/15/19 04:25 Magnesium 1.9 mg/dL (1.6-2.5) 09/15/19 04:25 Assessment and Plan (1) Hypertensive urgency Carmen Fleming is a 74-year-old female with scleroderma (CREST with (+)Raynauds phenomena, positive NICOLA, positive SCL 70), hypertrophic cardiomyo jeana (Echo on 06/10/16: LVEF 65%), hypertension, hyperlipidemia, hypothyroidism, chronic kidney disease stage 3, presented to ED for dizziness and fall on 09/14/19 and admitted for hypertensive urgency with evidence of end organ dysfunction including dizziness.At the time of my evaluation, she was in ICU on Nicardipine drip. BP was 175/81. She was last seen by Dr. Lehman (nephrology) on 08/11/[address] Patino (cardiology) on 05/13/19. She has been on Amlodipine 2.5 mg daily as needed and Metoprolol succinate 25 mg daily. Hypertensive urgency with chronic kidney disease stage 3, present on arrival. There is no recent history of NSAID use. Work up: Urinalysis on 09/14/19: Straw, Clear, pH 7.0, SG 1.010, protein negative, occult blood 0.03, leukocyte esterase 75, urine WBC 15. Renal US on 11/29/15: Negative. Treatment: Nicardipine drip, titrated off. Amlodipine 5 mg daily. Metoprolol succinate 50 mg daily. Chlorthalidone 25 mg daily. Progress: Nicardipine drip, titrated off. BP 110-130/50-70 mmHg. HR 60-67. Serum creatinine decreased from 1.3 to 1.1 in the past 20 hours. Recommendations: Chlorthalidone discontinued. Amlodipine 5 mg daily will be given this morning. Monitor BP/HR and symptoms. Status: Acute Priority: High (2) CKD (chronic kidney disease), stage III Please see above. Status: Chronic Priority: Medium
[2019-09-15] MEDS: 0.9 % SODIUM CHLORIDE 250 ML IV SCH ×2 (07:15→18:47)
[2019-09-15] MEDS: LEVOTHYROXINE 50 MCG TABLET PO SCH (07:52)
[2019-09-15] MEDS: FERROUS SULFATE 325 MG TABLET PO SCH (07:52)
[2019-09-15] MEDS: ACETAMINOPHEN 325 MG TABLET PO PRN ×2 (07:54→19:29)
[2019-09-15] MEDS ORDERED: CHLORTHALIDONE 25 MG TABLET PO SCH (09:00)
[2019-09-15] MEDS ORDERED: MULTIVIT,THER IRON,CA,FA & MIN 1 TABLET PO SCH (09:00)
[2019-09-15] MEDS ORDERED: DOCUSATE SODIUM 100 MG PO SCH (09:00)
[2019-09-15] MEDS: amLODIPine 5 MG TABLET PO SCH (09:31)
[2019-09-15] MEDS: ASPIRIN 81 MG TAB.CHEW PO SCH (09:31)
[2019-09-15] MEDS: FOLIC ACID 1 MG TABLET PO SCH (09:31)
[2019-09-15] MEDS: MULTIVIT,THER IRON,CA,FA & MIN 1 TABLET PO SCH (09:31)
[2019-09-15] MEDS: DOCUSATE SODIUM 100 MG CAPSULE PO SCH ×2 (09:31→21:13)
[2019-09-15] MEDS: THIAMINE 100 MG TABLET PO SCH (09:31)
[2019-09-15] MEDS: CYANOCOBALAMIN (VITAMIN B-12) 500 MCG TABLET PO SCH ×2 (09:31→21:12)
[2019-09-15] MEDS: LORATADINE 10 MG TABLET PO SCH (09:38)
[2019-09-15] MEDS: VITAMIN D3 1,000 UNIT TABLET PO SCH (09:38)
[2019-09-15] MEDS: OMEPRAZOLE 20 MG CAPSULE PO SCH (09:38)
[2019-09-15] MEDS: LACTOBACILLUS 1 CAPSULE PO SCH (09:38)
--- NOTE | 2019-09-15 10:55 | Internal Med Progress Note ---
Medical - PN: Subj Patient information: Note initiated : 09/15/19 at 10:53 am Service Date, if different from initiated Date: [] Patient: Carmen Fleming a 74 y/o F admitted on 09/14/19 for Dizziness, fall. Chief Complaint: [] Interval history: Ms. Fleming is a 74 year old F with a history of scleroderma/hypertension and chronic kidney disease who usually follows up with [facility] [place] and nephrology for medical issues. Patient has been in her baseline state of health with suboptimally controlled hypertension. Over the last couple of days patient has been getting progressively dizzy. She sustained a fall injuring her left knee. However there is no loss of consciousness or seizure-like episode. She further denied thunderclap headache/chest palpitation or chest pain during that episode. She describes her symptoms as weakness and lightheadedness with minimal head movement but no vertigo or spinning sensation or associated hearing loss. She denies prior similar episodes. Dizziness have progressed to the point she could barely function and prompted her to come to the ER. Initial work-up in the ER was essentially unremarkable with a negative CT head/CT angiogram head and neck. Although her blood pressures remained elevated over 200-220. She received 2 doses of labetalol with resultant improvement in systolics around 190s. Her dizziness since has improved. Subsequently hospitalist service was consulted in the setting of persistent hypertension and dizziness. At the time of evaluation patient is accompanied with her daughter. She was able to answer most of the question and endorsed to history as above. She denies recent NSAID intake or missing her regular medications. She endorses to suboptimally controlled hypertension when her systolics remains around 1 50-1 60. She says any time she has a blood pressure around 120 or lower she gets lightheaded in the past had had a fainting episode. She is currently on amlodipine 2.5/metoprolol 25 dose of which were lowered after the episode of syncope in the past. Other than that she denies fever, chills, lower extremity swelling, diarrhea, dysuria 09/15-patient clinically improved. Seen in room along with daughter. Continue antihypertensives as per nephrology. Weaned off nicardipine drip. Systolic stable. Creatinine downtrending from 1.3-1.1. Continue prior medical condition management and home meds. No concerns expressed to nursing staff. No telemetry events. - Constitutional Vitals: Vital Signs Temp Pulse Resp BP Pulse Ox 97.9 F 77 19 140/61 99 09/15/19 07:00 09/15/19 07:01 09/15/19 08:27 09/15/19 08:16 09/15/19 08:27 Period Temp Pulse Resp BP Sys/Dickson Pulse Ox Last 24 Hr 97.9 F-98.8 F 59-100 12-29 92-205/42-100 91-100 Intake and Output 09/14/19 09/15/19 09/15/19 21:59 05:59 13:59 Intake Total 1305 210 51 Output Total 1175 826 350 Balance 130 -616 -299 Weight 133 lb 9.6 oz Intake & Output: Intake & Output 09/14/19 09/15/19 09/15/19 21:59 05:59 13:59 Intake Total 1305 210 51 Output Total 1175 826 350 Balance 130 -616 -299 Weight 133 lb 9.6 oz Intake: IV 1065 51 Sodium Chloride 0.9% 250 ml @ 46 20 mls/hr IV .[id number] [facility] Rx#: [id number] Lactated Ringers 1,000 ml @ 1000 Wide Open IV BOLUS ONE Rx#: [id number] Cardene 25 MG In Sodium 65 5 Chloride 0.9% 240 ml @ 5 MG/HR 50 mls/hr IV Q12H [facility] Rx#: [id number] Oral 240 210 Output: Void Amount 1175 825 350 # of times incontinent of urine 1 Other: Meal Dinner Percent of Meal Consumed 50% Urine Appearance Clear Urine Color Dark Yellow Urine Odor Normal General appearance: no acute distress Exam: Alert and oriented Sitting on chair No telemetry events Minimal anxiety Medical - PN: Obj Da - Labs CBC & Chem 7: 09/15/19 04:25 09/15/19 04:25 Labs: Abnormal Lab Results 09/15/19 09/15/19 09/14/19 04:25 04:25 10:00 RBC 3.84 L Hgb 11.4 L Hct 34.2 L RDW 14.8 H BUN 31 H Creatinine Glucose 107 H Urine Occult Blood 0.03 A Ur Leukocyte Esterase 75 A Urine RBC 2 H Urine WBC 15 H Urine Bacteria Few A 09/14/19 09/14/19 08:41 08:41 RBC Hgb Hct RDW 14.7 H BUN 39 H Creatinine 1.3 H Glucose 132 H Urine Occult Blood Ur Leukocyte Esterase Urine RBC Urine WBC Urine Bacteria Meds: Medications Acetaminophen (Tylenol) 650 mg PO Q4-6HP PRN; Protocol PRN Reason: Per Pain Protocol/Fever > 101 Last Admin: 09/15/19 07:54 Dose: 650 mg Documented by: Amlodipine Besylate (Norvasc) 5 mg PO DAILY [facility] Last Admin: 09/15/19 09:31 Dose: 5 mg Documented by: Aspirin (Aspirin) 81 mg PO DAILY [facility] Last Admin: 09/15/19 09:31 Dose: 81 mg Documented by: Cyanocobalamin (Vitamin B-12) 1,000 mcg PO BID [facility] Stop: 09/19/19 09:01 Last Admin: 09/15/19 09:31 Dose: 1,000 mcg Documented by: Docusate Sodium (Colace) 100 mg PO BID [facility] Last Admin: 09/15/19 09:31 Dose: 100 mg Documented by: Ferrous Sulfate (Ferrous Sulfate) 325 mg PO [facility] Last Admin: 09/15/19 07:52 Dose: 325 mg Documented by: Folic Acid (Folic Acid) 1 mg PO DAILY [facility] Last Admin: 09/15/19 09:31 Dose: 1 mg Documented by: Magnesium Sulfate (Magnesium Sulfate) 2 gm in 50 mls @ 50 mls/hr IV UD PRN PRN Reason: MG = or < 1.7 Sodium Chloride (Sodium Chloride 0.9%) 250 mls @ 20 mls/hr IV .[id number] [facility] Last Infusion: 09/15/19 09:33 Dose: Infused Documented by: Iron Carb/Multivit/Salix/Folic Acid (Multivitamin W/Minerals) 1 tab PO DAILY [facility] Last Admin: 09/15/19 09:31 Dose: 1 tab Documented by: Lactobacillus Rhamnosus (Culturelle) 1 cap PO DAILY [facility] Last Admin: 09/15/19 09:38 Dose: 1 cap Documented by: [facility]ine [facility]) [facility] Last Admin: 09/15/19 07:52 Dose: 50 mcg Documented by: Loratadine (Claritin) 10 mg PO DAILY [facility] Last Admin: 09/15/19 09:38 Dose: 10 mg Documented by: Melatonin (Melatonin 3mg Tablet) 3 mg PO [facility] PRN PRN Reason: Insomnia Last Admin: 09/14/19 23:45 Dose: 3 mg Documented by: Metoprolol Succinate (Toprol Xl) 50 mg PO QHS [facility] Last Admin: 09/14/19 21:12 Dose: 50 mg Documented by: Omeprazole (Prilosec) 20 mg PO ACB [facility] Last Admin: 09/15/19 09:38 Dose: 20 mg Documented by: Ondansetron HCl (Zofran) 4 mg IV Q4-6HP PRN; Protocol PRN Reason: Nausea And Vomiting Last Admin: 09/15/19 07:52 Dose: 4 mg Documented by: Potassium Chloride (Klor-Con) 40 meq PO DAILYP PRN PRN Reason: K+ < 3.5 Senna/Docusate Sodium (Senna Plus Tablet) 1 tab PO HS [facility] Last Admin: 09/14/19 23:13 Dose: Not Given Documented by: Sodium Chloride (Saline Flush) 10 ml IV Q8 [facility] Last Admin: 09/15/19 04:51 Dose: 10 ml Documented by: Thiamine HCl (Vitamin B1) 100 mg PO DAILY [facility] Last Admin: 09/15/19 09:31 Dose: 100 mg Documented by: Vitamin D (Vitamin D3) 2,000 unit PO QDAY [facility] Last Admin: 09/15/19 09:38 Dose: 2,000 unit Documented by: Medical - PN: A/P - Time Spent With Patient Total time spent is greater than 50% in coordination of care (as documented) at patient's floor/unit and/or counseling patient: 25 - 35 minutes (1) Hypertensive urgency Status: Acute Assessment and plan: * Hypertensive urgency-with evidence of endorgan dysfunction including dizziness/KOFI. Clinically improved. Off nicardipine drip. Antihypertensive dose titration as per test [employer] home [employer]. * Mild KOFI-secondary to hypertensive urgency. Clinical improvement noted. Creatinine down to 1.1 * History of scleroderma/crest syndrome managed by [facility]. Currently stable * Hypothyroidism continue thyroxine * Iron deficiency anemia on ferrous sulfate. Hemoglobin 11.4 * GERD continue PPI * History of CKD stage IIIa secondary to hypertensive nephrosclerosis managed by nephrology. * Full code * Prophylaxis SCDs/ambulation Plan * Continue hypertension management per nephrology * Continue pre-existing medical condition management on home meds * PT OT/nutrition support * Monitor renal function Current Visit: Yes Medical - PN: Qual - Stroke Symptom Onset Unknown: No - VTE Deep Vein Thrombosis/Pulmonary Embolism Present on Admission: No
[2019-09-15] MEDS: METOPROLOL SUCCINATE 50 MG TAB.XL.24H PO SCH (20:01)
[2019-09-15] MEDS ORDERED: CHLORTHALIDONE 25 MG TABLET PO ONE (20:21)
[2019-09-15] MEDS: MELATONIN 3 MG TABLET PO PRN (21:13)
[2019-09-15] MEDS: SENNOSIDES/DOCUSATE SODIUM 1 TAB TABLET PO SCH (21:13)
[2019-09-16] MEDS: 0.9 % SODIUM CHLORIDE 10 ML SYRINGE IV SCH ×3 (05:34→21:42)
[2019-09-16 06:09] LABS: Hematocrit 33.5 % (36.0-48.0); Hemoglobin 11.1 g/dL (12.0-15.0); Mean Cell Volume 90.1 fL (80.0-100.0); Mean Corpuscular HGB Conc 33.3 g/dL (31.0-36.0); Mean Platelet Volume 7.9 fL (7.4-10.4); Platelet Count 190 K/mcL (140-440); RBC 3.72 M/mcL (4.00-5.20); Red Cell Distribution Width 14.9 % (11.5-14.5)
[2019-09-16 06:13] LABS: ALT/SGPT 13 U/l (0-40); AST/SGOT 18 U/l (0-37); Albumin 3.5 gm/dL (3.2-5.2); Albumin/Globulin Ratio 1.2 (1.0-2.3); Alkaline Phosphatase 39 U/L (39-117); Bilirubin,Direct < 0.2 mg/dL (0.0-0.3); Bilirubin,Total < 0.2 mg/dL (0.0-1.0); Blood Urea Nitrogen 38 mg/dl (8-23); Carbon Dioxide 22 mmol/L (22-30); Chloride 105 mmol/L (96-108); Globulin 2.9 gm/dL (2.2-3.7); Glomerular Filtration Rate 40; Glucose 97 mg/dL (70-105); Lactate Dehydrogenase 196 U/L (94-250); Phosphorous 3.7 mg/dL (2.7-4.5); Triglycerides 115 mg/dl (<150); Uric Acid 5.3 mg/dL (2.5-8.0)
--- NOTE | 2019-09-16 07:07 | Nephrology Progress Note ---
Subjective Patient information: Note initiated : 09/16/19 at 7:03 am Patient: Carmen Fleming 74 y/o F admitted on 09/14/19 for Dizziness, fall. Chief Complaint: Weakness Pertinent ROS: Feels better Muscle weakness No edema Objective - Vital Signs Vital signs: Vital Signs Temp Resp BP Pulse Ox 09/16/19 06:01 16 129/57 97 09/16/19 05:01 15 128/49 96 09/16/19 04:01 97.7 F 16 151/64 09/16/19 03:01 15 127/49 09/16/19 02:01 14 122/52 09/16/19 01:01 15 111/47 09/16/19 00:13 16 106/40 09/16/19 00:04 98.1 F 15 99/51 99 09/15/19 23:01 16 145/61 98 09/15/19 22:01 16 137/58 09/15/19 21:59 17 129/68 09/15/19 21:01 16 152/75 09/15/19 20:35 15 172/65 96 09/15/19 20:01 98.4 F 16 186/82 98 09/15/19 20:00 16 98 09/15/19 19:59 15 179/83 09/15/19 18:03 139/78 09/15/19 18:01 135/116 09/15/19 17:28 158/72 09/15/19 17:01 169/70 95 09/15/19 16:15 94 09/15/19 16:01 98.3 F 18 153/74 98 09/15/19 14:50 128/77 09/15/19 14:01 19 120/59 09/15/19 13:01 17 116/67 09/15/19 12:01 98 F 15 134/47 95 09/15/19 12:00 17 09/15/19 11:01 22 135/58 09/15/19 10:01 19 105/54 95 09/15/19 09:46 21 115/54 98 09/15/19 09:31 18 111/56 97 09/15/19 09:16 98.4 F 17 108/70 98 09/15/19 09:01 16 132/72 95 09/15/19 08:46 16 125/71 97 09/15/19 08:31 16 116/70 98 09/15/19 08:27 19 99 09/15/19 08:16 14 140/61 96 09/15/19 08:01 16 126/58 96 09/15/19 07:56 16 92/57 97 09/15/19 07:21 96 09/15/19 07:16 17 138/46 95 Intake and Output 09/15/19 09/16/19 09/16/19 21:59 05:59 13:59 Intake Total 120 Output Total 226 375 Balance -226 -255 Intake: Oral 120 Output: Void Amount 225 375 # of times incontinent of urine 1 Other: Urine Appearance Clear Clear Straight Clear Urine Color Bright Yellow Bright Yellow Straight Bright Yellow Weight 134 lb Intake & Output: Intake & Output 09/15/19 09/16/19 09/16/19 21:59 05:59 13:59 Intake Total 120 Output Total 226 375 Balance -226 -255 Weight 134 lb Intake: Oral 120 Output: Void Amount 225 375 # of times incontinent of urine 1 Other: Urine Appearance Clear Clear Straight Clear Urine Color Bright Yellow Bright Yellow Straight Bright Yellow - General Appearance General appearance: appears started age, fatigue EENT: mucous membranes moist Neck: no JVD Respiratory: clear Cardiology: no edema Gastrointestinal: no tenderness Integumentary: warm and dry Neurologic: no focal deficit, alert and oriented x3 Musculoskeletal: no deformities Psychiatric: mood/affect appropriate - Lab 09/16/19 03:48 09/16/19 03:48 Most recent lab results Calcium 9.0 mg/dl (8.6-10.4) 09/16/19 03:48 Phosphorus 3.7 mg/dL (2.7-4.5) 09/16/19 03:48 Magnesium 2.1 mg/dL (1.6-2.5) 09/16/19 03:48 Assessment and Plan (1) Hypertensive urgency Carmen Fleming is a 74-year-old female with scleroderma (CREST with (+)Raynauds phenomena, positive NICOLA, positive SCL 70), hypertrophic cardiomyopathy (Echo on 06/10/16: LVEF 65%), hypertension, hyperlipidemia, hypothyroidism, chronic kidney disease stage 3, presented to ED for dizziness and fall on 09/14/19 and admitted for hypertensive urgency with evidence of end organ dysfunction including dizziness.At the time of my evaluation, she was in ICU on Nicardipine drip. BP was 175/81. She was last seen by Dr. Lehman (nephrology) on 08/11/[address] Patino (cardiology) on 05/13/19. She has been on Amlodipine 2.5 mg daily as needed and Metoprolol succinate 25 mg daily. Hypertensive urgency with chronic kidney disease stage 3, present on arrival. There is no recent history of NSAID use. Acute gram negative dorothy urinary tract infection. Work up: Urinalysis on 09/14/19: Straw, Clear, pH 7.0, SG 1.010, protein negative, occult blood 0.03, leukocyte esterase 75, urine WBC 15. Renal US on 11/29/15: Negative. Progress: Labile hypertension. BP increased to 186/82 last evening while on Amlodipine 5 mg daily and Metoprolol succinate 50 mg daily. Serum creatinine 1.1 to 1.3 without trend since admission. Recommendations: Continue Amlodipine 5 mg daily, Metoprolol succinate 50 mg daily and Chlorthalidone 25 mg daily. Outpatient follow up with Dr. Lehman. Status: Acute Priority: High (2) Labile hypertension Please see above Status: Chronic Priority: Medium (3) CKD (chronic kidney disease), stage III Please see above Status: Chronic Priority: Medium
[2019-09-16] MEDS: OMEPRAZOLE 20 MG CAPSULE PO SCH (07:26)
[2019-09-16] MEDS: amLODIPine 5 MG TABLET PO SCH (07:26)
[2019-09-16] MEDS: LEVOTHYROXINE 50 MCG TABLET PO SCH (07:29)
[2019-09-16 08:03] LABS: Eosinophils % (Manual) 4 % (0-7); Lymphocytes % 27 % (15-49); Monocytes % (Manual) 9 % (1-12); Platelet Estimate NORMAL (NORMAL); RBC Morphology NORMAL (NORMAL); Segmented Neutrophils % 60 % (38-78)
[2019-09-16] MEDS ORDERED: CHLORTHALIDONE 25 MG TABLET PO SCH (09:00)
[2019-09-16] MEDS ORDERED: MAGNESIUM HYDROXIDE 30 ML ORAL.SUSP PO PRN (09:23)
[2019-09-16] MEDS ORDERED: BISACODYL 10 MG SUPP.RECT PR PRN (09:23)
[2019-09-16] MEDS ORDERED: FLEETS ADULT ENEMA PR PRN (09:23)
[2019-09-16] MEDS: DOCUSATE SODIUM 100 MG CAPSULE PO SCH ×2 (09:41→20:33)
[2019-09-16] MEDS: MULTIVIT,THER IRON,CA,FA & MIN 1 TABLET PO SCH (09:41)
[2019-09-16] MEDS: FOLIC ACID 1 MG TABLET PO SCH (09:41)
[2019-09-16] MEDS: FERROUS SULFATE 325 MG TABLET PO SCH (09:41)
[2019-09-16] MEDS: LORATADINE 10 MG TABLET PO SCH (09:41)
[2019-09-16] MEDS: LACTOBACILLUS 1 CAPSULE PO SCH (09:41)
[2019-09-16] MEDS: ASPIRIN 81 MG TAB.CHEW PO SCH (09:41)
[2019-09-16] MEDS: THIAMINE 100 MG TABLET PO SCH (09:41)
[2019-09-16] MEDS: VITAMIN D3 1,000 UNIT TABLET PO SCH (09:41)
[2019-09-16] MEDS: ACETAMINOPHEN 325 MG TABLET PO PRN (09:42)
[2019-09-16] MEDS: CYANOCOBALAMIN (VITAMIN B-12) 500 MCG TABLET PO SCH ×2 (09:43→20:33)
--- NOTE | 2019-09-16 09:45 | Internal Med Progress Note ---
Medical - PN: Subj Patient information: Note initiated : 09/16/19 at 9:42 am Service Date, if different from initiated Date: [] Patient: Carmen Fleming a 74 y/o F admitted on 09/14/19 for Dizziness, fall. Chief Complaint: [] Interval history: Ms. Fleming is a 74 year old F with a history of scleroderma/hypertension and chronic kidney disease who usually follows up with arthritis Frannie and nephrology for medical issues. Patient has been in her baseline state of health with suboptimally controlled hypertension. Over the last couple of days patient has been getting progressively dizzy. She sustained a fall injuring her left knee. However there is no loss of consciousness or seizure-like episode. She further denied thunderclap headache/chest palpitation or chest pain during that episode. She describes her symptoms as weakness and lightheadedness with minimal head movement but no vertigo or spinning sensation or associated hearing loss. She denies prior similar episodes. Dizziness have progressed to the point she could barely function and prompted her to come to the ER. Initial work-up in the ER was essentially unremarkable with a negative CT head/CT angiogram head and neck. Although her blood pressures remained elevated over 200-220. She received 2 doses of labetalol with resultant improvement in systolics around 190s. Her dizziness since has improved. Subsequently hospitalist service was consulted in the setting of persistent hypertension and dizziness. At the time of evaluation patient is accompanied with her daughter. She was able to answer most of the question and endorsed to history as above. She denies recent NSAID intake or missing her regular medications. She endorses to suboptimally controlled hypertension when her systolics remains around 1 50-1 60. She says any time she has a blood pressure around 120 or lower she gets lightheaded in the past had had a fainting episode. She is currently on amlodipine 2.5/metoprolol 25 dose of which were lowered after the episode of syncope in the past. Other than that she denies fever, chills, lower extremity swelling, diarrhea, dysuria 09/15-patient clinically improved. Seen in room along with daughter. Continue antihypertensives as per nephrology. Weaned off nicardipine drip. Systolic stable. Creatinine downtrending from 1.3-1.1. Continue prior medical condition management and home meds. No concerns expressed to nursing staff. No telemetry events. 09/16-patient exhibiting labile hypertension with fluctuations from systolic over 180 down to 90s. Medication being optimized by nephrology. No otherwise overnight events or telemetry events. No dizziness. Sitting on chair this morning eating breakfast. Feels a lot better. Ongoing physical therapy. Anticipate discharge in 24 to 48 hours with better optimization of antihypertensives. - Constitutional Vitals: Vital Signs Temp Pulse Resp BP Pulse Ox 97.9 F 77 17 156/70 98 09/16/19 08:29 09/15/19 07:01 09/16/19 08:29 09/16/19 08:29 09/16/19 08:29 Period Temp Pulse Resp BP Sys/Dickson Pulse Ox Last 24 Hr 97.7 F-98.4 F - 99-186/40-116 94-99 Intake and Output 09/15/19 09/16/19 09/16/19 21:59 05:59 13:59 Intake Total 120 Output Total 226 375 625 Balance -226 -255 -625 Weight 134 lb Intake & Output: Intake & Output 09/15/19 09/16/19 09/16/19 21:59 05:59 13:59 Intake Total 120 Output Total 226 375 625 Balance -226 -255 -625 Weight 134 lb Intake: Oral 120 Output: Void Amount 225 375 625 # of times incontinent of urine 1 Other: Urine Appearance Clear Clear Straight Clear Urine Color Bright Yellow Bright Yellow Pale Bright Yellow Straight Bright Yellow Urine Odor Normal General appearance: no acute distress Exam: Alert oriented Nonlabored breathing No telemetry events No anxiety No lymphedema Medical - PN: Obj Da - Labs CBC & Chem 7: 09/16/19 03:48 09/16/19 03:48 Labs: Abnormal Lab Results 09/16/19 09/16/19 09/15/19 03:48 03:48 04:25 RBC 3.72 L Hgb 11.1 L Hct 33.5 L RDW 14.9 H BUN 38 H 31 H Creatinine 1.3 H Glucose 107 H Urine Occult Blood Ur Leukocyte Esterase Urine RBC Urine WBC Urine Bacteria 09/15/19 09/14/19 09/14/19 04:25 10:00 08:41 RBC 3.84 L Hgb 11.4 L Hct 34.2 L RDW 14.8 H BUN 39 H Creatinine 1.3 H Glucose 132 H Urine Occult Blood 0.03 A Ur Leukocyte Esterase 75 A Urine RBC 2 H Urine WBC 15 H Urine Bacteria Few A 09/14/19 08:41 RBC Hgb Hct RDW 14.7 H BUN Creatinine Glucose Urine Occult Blood Ur Leukocyte Esterase Urine RBC Urine WBC Urine Bacteria Meds: Medications Acetaminophen (Tylenol) 650 mg PO Q4-6HP PRN; Protocol PRN Reason: Per Pain Protocol/Fever > 101 Last Admin: 09/15/19 19:29 Dose: 650 mg Documented by: Amlodipine Besylate (Norvasc) 5 mg PO DAILY [facility] Last Admin: 09/16/19 07:26 Dose: 5 mg Documented by: Aspirin (Aspirin) 81 mg PO DAILY [facility] Last Admin: 09/15/19 09:31 Dose: 81 mg Documented by: Bisacodyl (Dulcolax) 10 mg GA Q2-3DAYS PRN PRN Reason: Constipation Chlorthalidone (Hygroton) 25 mg PO DAILY [facility] Last Admin: 09/16/19 07:28 Dose: 25 mg Documented by: Cyanocobalamin (Vitamin B-12) 1,000 mcg PO BID [facility] Stop: 09/19/19 09:01 Last Admin: 09/15/19 21:12 Dose: 1,000 mcg Documented by: Docusate Sodium (Colace) 100 mg PO BID [facility] Last Admin: 09/15/19 21:13 Dose: 100 mg Documented by: Ferrous S[facility] ([facility]ous Sulfate) [facility] Last Admin: 09/15/19 07:52 Dose: 325 mg Documented by: Folic Acid (Folic Acid) 1 mg PO DAILY [facility] Last Admin: 09/15/19 09:31 Dose: 1 mg Documented by: Magnesium Sulfate (Magnesium Sulfate) 2 gm in 50 mls @ 50 mls/hr IV UD PRN PRN Reason: MG = or < 1.7 Iron Carb/Multivit/Murray/Folic Acid (Multivitamin W/Minerals) 1 tab PO DAILY [facility] Last Admin: 09/15/19 09:31 Dose: 1 tab Documented by: Lactobacillus Rhamnosus (Culturelle) 1 cap PO DAILY [facility] Last Admin: 09/15/19 09:38 Dose: 1 cap Documented by: Levothyroxine S[facility] (Synthroid) [facility] Last Admin: 09/16/19 07:29 Dose: 50 mcg Documented by: Loratadine (Claritin) 10 mg PO DAILY [facility] Last Admin: 09/15/19 09:38 Dose: 10 mg Documented by: Magnesium Hydroxide (Milk Of Magnesia) 30 ml PO DAILYP PRN PRN Reason: Constipation Melatonin (Melatonin 3mg Tablet) 3 mg PO HSP PRN PRN Reason: Insomnia Last Admin: 09/15/19 21:13 Dose: 3 mg Documented by: Metoprolol Succinate (Toprol Xl) 50 mg PO QHS [facility] Last Admin: 09/15/19 20:01 Dose: 50 mg Documented by: Omeprazole (Prilosec) 20 mg PO ACB [facility] Last Admin: 09/16/19 07:26 Dose: 20 mg Documented by: Ondansetron HCl (Zofran) 4 mg IV Q4-6HP PRN; Protocol PRN Reason: Nausea And Vomiting Last Admin: 09/15/19 07:52 Dose: 4 mg Documented by: Potassium Chloride (Klor-Con) 40 meq PO DAILYP PRN PRN Reason: K+ < 3.5 Senna/Docusate Sodium (Senna Plus Tablet) 1 tab PO HS [facility] Last Admin: 09/15/19 21:13 Dose: Not Given Documented by: Sodium Biphosphate/Sodium Phosphate (Fleets Adult) 1 dose GA Q3-4DAYS PRN PRN Reason: Constipation Sodium Chloride (Saline Flush) 10 ml IV Q8 [facility] Last Admin: 09/16/19 05:34 Dose: 10 ml Documented by: Thiamine HCl (Vitamin B1) 100 mg PO DAILY [facility] Last Admin: 09/15/19 09:31 Dose: 100 mg Documented by: Vitamin D (Vitamin D3) 2,000 unit PO QDAY [facility] Last Admin: 09/15/19 09:38 Dose: 2,000 unit Documented by: Medical - PN: A/P - Time Spent With Patient Total time spent is greater than 50% in coordination of care (as documented) at patient's floor/unit and/or counseling patient: 15 - 24 minutes (1) Hypertensive urgency Status: Acute Assessment and plan: * Hypertensive urgency-clinically resolved with management as per nephrology. Endorgan dysfunction improved including resolution of dizziness/KOFI. * Mild KOFI-secondary to hypertensive urgency. Resolved * History of scleroderma/crest syndrome managed by [facility]. * Hypothyroidism continue thyroxine * Iron deficiency anemia on ferrous sulfate. Hemoglobin 11.4 * GERD continue PPI * History of CKD stage IIIa secondary to hypertensive nephrosclerosis managed by nephrology. * Full code * Prophylaxis SCDs/ambulation Plan * Continue antihypertensive dose titration optimization as per nephrology * Continue pre-existing medical condition management on home meds * Daily PT OT/nutrition support * Continue telemetry monitoring Current Visit: Yes Medical - PN: Qual - Stroke Symptom Onset Unknown: No - VTE Deep Vein Thrombosis/Pulmonary Embolism Present on Admission: No
[2019-09-16] MEDS: SENNOSIDES/DOCUSATE SODIUM 1 TAB TABLET PO SCH (20:33)
[2019-09-16] MEDS: METOPROLOL SUCCINATE 50 MG TAB.XL.24H PO SCH (20:33)
[2019-09-16] MEDS: MELATONIN 3 MG TABLET PO PRN (23:01)
[2019-09-17 05:29] LABS: Hematocrit 34.3 % (36.0-48.0); Hemoglobin 11.4 g/dL (12.0-15.0); Mean Cell Volume 89.9 fL (80.0-100.0); Mean Corpuscular HGB Conc 33.1 g/dL (31.0-36.0); Mean Platelet Volume 7.8 fL (7.4-10.4); Platelet Count 217 K/mcL (140-440); RBC 3.82 M/mcL (4.00-5.20); WBC 8.3 K/mcL (4.5-11.0)
[2019-09-17 05:41] LABS: ALT/SGPT 12 U/l (0-40); AST/SGOT 18 U/l (0-37); Albumin 3.6 gm/dL (3.2-5.2); Albumin/Globulin Ratio 1.3 (1.0-2.3); Alkaline Phosphatase 38 U/L (39-117); Bilirubin,Direct < 0.2 mg/dL (0.0-0.3); Bilirubin,Total 0.2 mg/dL (0.0-1.0); Blood Urea Nitrogen 44 mg/dl (8-23); Calcium 9.2 mg/dl (8.6-10.4); Carbon Dioxide 22 mmol/L (22-30); Chloride 102 mmol/L (96-108); Globulin 2.8 gm/dL (2.2-3.7); Glomerular Filtration Rate 40; Glucose 109 mg/dL (70-105); Lactate Dehydrogenase 201 U/L (94-250); Phosphorous 3.8 mg/dL (2.7-4.5); Triglycerides 126 mg/dl (<150); Uric Acid 5.7 mg/dL (2.5-8.0)
[2019-09-17] MEDS: 0.9 % SODIUM CHLORIDE 10 ML SYRINGE IV SCH (05:53)
[2019-09-17 06:23] LABS: Basophils % (Manual) 1 % (0-2); Eosinophils % (Manual) 5 % (0-7); Lymphocytes % 21 % (15-49); Monocytes % (Manual) 5 % (1-12); Platelet Estimate NORMAL (NORMAL); RBC Morphology NORMAL (NORMAL); Segmented Neutrophils % 68 % (38-78)
--- NOTE | 2019-09-17 06:37 | Nephrology Progress Note ---
Subjective Patient information: Note initiated : 09/17/19 at 6:35 am Patient: Carmen Fleming 74 y/o F admitted on 09/14/19 for Dizziness, fall. Chief Complaint: Weakness Pertinent ROS: Feels better Dizziness No edema Objective - Vital Signs Vital signs: Vital Signs Temp Pulse Resp BP BP BP Pulse Ox 09/17/19 03:45 97.4 F 69 16 131/64 98 09/17/19 00:00 98.4 F 77 14 143/76 96 09/16/19 20:01 139/67 09/16/19 20:00 82 18 96 09/16/19 19:35 97.2 F 146/75 96 09/16/19 19:01 144/85 09/16/19 18:29 188/75 09/16/19 16:01 98.7 F 20 142/74 95 09/16/19 15:01 20 167/76 95 09/16/19 14:57 20 161/77 95 09/16/19 14:01 17 128/59 95 09/16/19 13:35 16 102/59 97 09/16/19 12:21 20 120/65 98 09/16/19 12:06 15 103/91 97 09/16/19 12:01 20 86/52 98 09/16/19 12:00 97.4 F 20 102/59 96 09/16/19 11:59 20 78/50 95 09/16/19 11:01 20 136/65 95 09/16/19 10:38 19 139/125 95 09/16/19 10:01 17 118/60 95 09/16/19 09:17 20 112/63 95 09/16/19 09:04 14 129/117 97 09/16/19 08:29 97.9 F 17 156/70 98 09/16/19 08:00 80 20 96 09/16/19 07:21 22 171/73 98 09/16/19 07:03 19 176/77 98 Intake and Output 09/16/19 09/17/19 09/17/19 21:59 05:59 13:59 Intake Total 240 240 Output Total 1375 Balance -1135 240 Intake: Oral 240 240 Output: Void Amount 975 Urine/Stool Mix 400 Other: Urine Appearance Clear Urine Color Bright Yellow Urine Odor Normal Stool Size Smear Stool Color Yellow Stool Consistency Soft # Bowel Movements 1 Weight 132 lb 8 oz Intake & Output: Intake & Output 09/16/19 09/17/19 09/17/19 21:59 05:59 13:59 Intake Total 240 240 Output Total 1375 Balance -1135 240 Weight 132 lb 8 oz Intake: Oral 240 240 Output: Void Amount 975 Urine/Stool Mix 400 Other: Urine Appearance Clear Urine Color Bright Yellow Urine Odor Normal Stool Size Smear Stool Color Yellow Stool Consistency Soft # Bowel Movements 1 - General Appearance General appearance: appears started age, fatigue EENT: mucous membranes moist Neck: no JVD Respiratory: clear Cardiology: no edema Gastrointestinal: no tenderness Integumentary: warm and dry Neurologic: no focal deficit, alert and oriented x3 Musculoskeletal: no deformities Psychiatric: mood/affect appropriate, cooperative - Lab 09/17/19 03:30 09/17/19 03:30 Most recent lab results Calcium 9.2 mg/dl (8.6-10.4) 09/17/19 03:30 Phosphorus 3.8 mg/dL (2.7-4.5) 09/17/19 03:30 Magnesium 2.2 mg/dL (1.6-2.5) 09/17/19 03:30 Assessment and Plan (1) Hypertensive urgency Carmen Fleming is a 74-year-old female with scleroderma (CREST with (+)Raynauds phenomena, positive NICOLA, positive SCL 70), hypertrophic cardiomyopathy (Echo on 06/10/16: LVEF 65%), hypertension, hyperlipidemia, hypothyroidism, chronic kidney disease stage 3, presented to ED for dizziness and fall on 09/14/19 and admitted for hypertensive urgency with evidence of end organ dysfunction including dizziness.At the time of my evaluation, she was in ICU on Nicardipine drip. BP was 175/81. She was last seen by Dr. Lehman (nephrology) on 08/11/[address] Patino (cardiology) on 05/13/19. She has been on Amlodipine 2.5 mg daily as needed and Metoprolol succinate 25 mg daily. Hypertensive urgency with chronic kidney disease stage 3, present on arrival. There is no recent history of NSAID use. Acute gram negative dorothy urinary tract infection. Work up: Urinalysis on 09/14/19: Straw, Clear, pH 7.0, SG 1.010, protein negative, occult blood 0.03, leukocyte esterase 75, urine WBC 15. Renal US on 11/29/15: Negative. Progress: Labile hypertension. Serum creatinine 1.1 to 1.3 without trend since admission. Recommendations: Continue Amlodipine 2.5 mg twice daily, Metoprolol succinate 25 mg twice daily and Chlorthalidone 12.5 mg daily. Outpatient follow up with Dr. Lehman. Status: Acute Priority: High (2) Labile hypertension Please see above Status: Chronic Priority: Medium (3) CKD (chronic kidney disease), stage III Please see above Status: Chronic Priority: Medium
[2019-09-17] MEDS: OMEPRAZOLE 20 MG CAPSULE PO SCH (07:23)
[2019-09-17] MEDS: LEVOTHYROXINE 50 MCG TABLET PO SCH (07:24)
[2019-09-17] MEDS: FERROUS SULFATE 325 MG TABLET PO SCH (07:24)
--- NOTE | 2019-09-17 07:38 | Discharge Summary ---
Medical - DS: Prov Patient information: Note initiated : 09/17/19 at 7:35 am Service Date, if different from initiated Date: [] Patient: Carmen Fleming 74 y/o F admitted on 09/14/19 for Dizziness, fall. Chief Complaint: [] Date of admission: 09/14/19 15:15 Discharge date: 09/17/19 Primary care physician: Ángel Cabrera Consults: 09/14/19 Consult to Physician [CONS] Stat Comment: Consulting Provider: Horace Franco Reason For Exam: Physician to Consult 09/14/19 16:28 Consult to Physician [CONS] Routine Comment: Consulting Provider: Bonnie Us Reason For Exam: Physician to Consult Medical - DS: Meds - Discharge Medications Prescriptions: Ciprofloxacin [Cipro] 500 mg PO BID #6 tab Transmission Status: Received by [facility] Chlorthalidone [Hygroton] 25 mg PO DAILY #30 tab Transmission Status: Received by [facility] amLODIPine [Norvasc] 2.5 mg PO BID #60 tab Transmission Status: Sent to [facility] Metoprolol Succinate [Toprol Xl] 25 mg PO BID #60 tab.xl.24h Transmission Status: Sent to [facility] Active and Home Medications: Home Medications aspirin 81 mg tablet,delayed release 81 mg PO QDAY tab 05/15/15 [History Confirmed 09/14/19 Last Taken 09/13/19 08:00] docusate sodium 50 mg capsule 100 mg PO QDAY cap 07/31/17 [History Confirmed 09/14/19 Last Taken 09/13/19 08:00] multivitamin 1 tab PO QDAY 01/23/18 [History Confirmed 09/14/19 Last Taken 09/13/19 08:00] ferrous sulfate 142 mg (45 mg iron) tablet,extended release 142 mg PO QDAY #60 tab 05/05/19 [Rx Confirmed 09/14/19 Last Taken 09/13/19 08:00] tumeric 1,000 mg PO 05/11/19 [History Confirmed 08/12/19 Last Taken 09/13/19 08:00] omeprazole magnesium 20 mg capsule,delayed release 20 mg PO QDAY #30 cap 06/09/19 [Rx Confirmed 09/14/19 Last Taken 09/13/19 08:00] levothyroxine 50 mcg tablet 50 mcg PO QDAY #90 tab 06/17/19 [Rx Confirmed 09/14/19 Last Taken 09/13/19 08:00] cholecalciferol (vitamin D3) 2,000 unit capsule 2,000 unit PO QDAY #100 cap 08/12/19 [Rx Confirmed 09/14/19 Last Taken 09/13/19 08:00] L.acidoph,Paracasei, B.lactis [Probiotic] 1 each PO DAILY 09/14/19 [History Confirmed 09/14/19 Last Taken 09/13/19 08:00] Loratadine [Allerclear] 10 mg PO DAILY 09/14/19 [History Confirmed 09/14/19 Last Taken 09/13/19 08:00] Chlorthalidone [Hygroton] 25 mg PO DAILY #30 tab 09/17/19 [Rx Last Taken Unknown] Ciprofloxacin [Cipro] 500 mg PO BID #6 tab 09/17/19 [Rx Last Taken Unknown] Metoprolol Succinate [Toprol Xl] 25 mg PO BID #60 tab.xl.24h 09/17/19 [Rx Last Taken Unknown] amLODIPine [Norvasc] 2.5 mg PO BID #60 tab 09/17/19 [Rx Last Taken Unknown] Medical - DS: Hosp Hospital Course: Discharge diagnosis * Hypertensive urgency-clinically resolved with management as per nephrology. Endorgan dysfunction improved dizziness/KOFI. Patient now on amlodipine 2.5 twice daily, metoprolol succinate 25 twice daily along with chlorthalidone 25 daily. Blood pressure stable around 130s. We will follow-up with nephrology as outpatient on discharge. * E. coli UTI-continue additional 3 days oral ciprofloxacin. * Mild KOFI-secondary to hypertensive urgency. Resolved * History of scleroderma/crest syndrome managed by [facility]. * Hypothyroidism continue thyroxine * Iron deficiency anemia on ferrous sulfate. Hemoglobin 11.4 * GERD continue PPI * History of CKD stage IIIa secondary to hypertensive nephrosclerosis managed by nephrology. Brief hospital course Ms. Fleming is a 74 year old F with a history of scleroderma/hypertension and chronic kidney disease who usually follows up with [facility] [place] and nephrology for medical issues. Patient has been in her baseline state of health with suboptimally controlled hypertension. Over the last couple of days patient has been getting progressively dizzy. She sustained a fall injuring her left knee. However there is no loss of consciousness or seizure-like episode. She further denied thunderclap headache/chest palpitation or chest pain during that episode. She describes her symptoms as weakness and lightheadedness with minimal head movement but no vertigo or spinning sensation or associated hearing loss. She denies prior similar episodes. Dizziness have progressed to the point she could barely function and prompted her to come to the ER. Initial work-up in the ER was essentially unremarkable with a negative CT head/CT angiogram head and neck. Although her blood pressures remained elevated over 200-220. She received 2 doses of labetalol with resultant improvement in systolics around 190s. Her dizziness since has improved. Subsequently hospitalist service was consulted in the setting of persistent hypertension and dizziness. At the time of evaluation patient is accompanied with her daughter. She was able to answer most of the question and endorsed to history as above. She denies recent NSAID intake or missing her regular medications. She endorses to suboptimally controlled hypertension when her systolics remains around 1 50-1 60. She says any time she has a blood pressure around 120 or lower she gets lightheaded in the past had had a fainting episode. She is currently on amlodipine 2.5/metoprolol 25 dose of which were lowered after the episode of syncope in the past. Other than that she denies fever, chills, lower extremity swelling, diarrhea, dysuria 09/15-patient clinically improved. Seen in room along with daughter. Continue antihypertensives as per nephrology. Weaned off nicardipine drip. Systolic stable. Creatinine downtrending from 1.3-1.1. Continue prior medical condition management and home meds. No concerns expressed to nursing staff. No telemetry events. 09/16-patient exhibiting labile hypertension with fluctuations from systolic over 180 down to 90s. Medication being optimized by nephrology. No otherwise overnight events or telemetry events. No dizziness. Sitting on chair this morning eating breakfast. Feels a lot better. Ongoing physical therapy. Anticipate discharge in 24 to 48 hours with better optimization of antihypertensives. 09/17-much improved systolics. Currently on 130s. No episode of dizziness lightheadedness. Ambulating and tolerating diet. Currently on regimen as per nephrology including amlodipine 2.5 twice daily, metoprolol 25 twice daily, chlorthalidone 25 daily. We will follow-up with nephrology on discharge. Detailed discharge instructions below. Discharge diagnosis: . - Time Spent with Patient Total time spent providing and/or coordinating discharge services: Greater than 30 minutes Medical - DS: Exam - Constitutional Vitals: Vital Signs Temp Pulse Resp BP BP BP Pulse Ox 09/17/19 03:45 97.4 F 69 16 131/64 98 09/17/19 00:00 98.4 F 77 14 143/76 96 09/16/19 20:01 139/67 09/16/19 20:00 82 18 96 09/16/19 19:35 97.2 F 146/75 96 09/16/19 19:01 144/85 09/16/19 18:29 188/75 09/16/19 16:01 98.7 F 20 142/74 95 09/16/19 15:01 20 167/76 95 09/16/19 14:57 20 161/77 95 09/16/19 14:01 17 128/59 95 09/16/19 13:35 16 102/59 97 09/16/19 12:21 20 120/65 98 09/16/19 12:06 15 103/91 97 09/16/19 12:01 20 86/52 98 09/16/19 12:00 97.4 F 20 102/59 96 09/16/19 11:59 20 78/50 95 09/16/19 11:01 20 136/65 95 09/16/19 10:38 19 139/125 95 09/16/19 10:01 17 118/60 95 09/16/19 09:17 20 112/63 95 09/16/19 09:04 14 129/117 97 09/16/19 08:29 97.9 F 17 156/70 98 09/16/19 08:00 80 20 96 Intake and Output 09/16/19 09/17/19 09/17/19 21:59 05:59 13:59 Intake Total 240 240 Output Total 1375 Balance -1135 240 Intake: Oral 240 240 Output: Void Amount 975 Urine/Stool Mix 400 Other: Urine Appearance Clear Urine Color Bright Yellow Urine Odor Normal Stool Size Smear Stool Color Yellow Stool Consistency Soft # Bowel Movements 1 Weight 132 lb 8 oz Medical - DS: Data Labs on day of discharge: Labs from last 24 hours 09/17/19 09/17/19 09/16/19 03:30 03:30 03:48 WBC 8.3 RBC 3.82 L Hgb 11.4 L Hct 34.3 L MCV 89.9 MCH 29.8 MCHC 33.1 RDW 15.0 H Plt Count 217 MPV 7.8 Total Counted 200 100 Seg Neutrophils % 68 60 Band Neutrophils % Not Reportable Lymphocytes % 21 27 Monocytes % (Manual) 5 9 Eosinophils % (Manual) 5 4 Basophils % (Manual) 1 Platelet Estimate Normal Normal RBC Morphology Normal Normal Sodium 138 Potassium 4.2 Chloride 102 Carbon Dioxide 22 Anion Gap 14.0 BUN 44 H Creatinine 1.3 H GFR Calculation 40 Glucose 109 H Uric Acid 5.7 Calcium 9.2 Phosphorus 3.8 Magnesium 2.2 Total Bilirubin 0.2 Direct Bilirubin < 0.2 GGT 10 AST 18 ALT 12 Alkaline Phosphatase 38 L Lactate Dehydrogenase 201 Total Protein 6.4 Albumin 3.6 Globulin 2.8 Albumin/Globulin Ratio 1.3 Triglycerides 126 Medical - DS: A/P - Patient/Caregiver Discharge Instructions Activity: increase activity as tolerated Diet: Regular Diet Additional Instructions: Follow-up nephrology in 1 week Continue metoprolol 25 twice daily, amlodipine 2.5 twice daily, chlorthalidone once daily 25 Return to ER if dizziness lightheadedness Closely monitor blood pressure at home Continue oral ciprofloxacin for additional 3 days for E. coli UTI Prescriptions: Ciprofloxacin [Cipro] 500 mg PO BID #6 tab Transmission Status: Received by [facility] Chlorthalidone [Hygroton] 25 mg PO DAILY #30 tab Transmission Status: Received by [facility] amLODIPine [Norvasc] 2.5 mg PO BID #60 tab Transmission Status: Sent to [facility] Metoprolol Succinate [Toprol Xl] 25 mg PO BID #60 tab.xl.24h Transmission Status: Sent to [facility] - Problem Maintenance (1) Hypertensive urgency Status: Acute - Follow up Plan Follow up with: Ángel Cabrera PA-C [Primary Care Provider] - Disposition: Home, Self-Care Prognosis: Good Rehab Potential: Fair I certify that the patient requires SNF services: No Overall status at discharge: patient is progressing back to baseline Medical - DS: Qual - VTE Deep Vein Thrombosis/Pulmonary Embolism Present on Admission: No
[2019-09-17] MEDS ORDERED: amLODIPine 5 MG TABLET PO SCH (09:00)
[2019-09-17] MEDS ORDERED: METOPROLOL SUCCINATE 25 MG TAB.XL.24H PO SCH (09:00)
[2019-09-17] MEDS ORDERED: CHLORTHALIDONE 25 MG TABLET PO SCH (09:00)
[2019-09-17] MEDS ORDERED: CIPROFLOXACIN 500 MG TABLET PO SCH (09:00)
[2019-09-17] MEDS: LACTOBACILLUS 1 CAPSULE PO SCH (09:42)
[2019-09-17] MEDS: CYANOCOBALAMIN (VITAMIN B-12) 500 MCG TABLET PO SCH (09:42)
[2019-09-17] MEDS: LORATADINE 10 MG TABLET PO SCH (09:42)
[2019-09-17] MEDS: THIAMINE 100 MG TABLET PO SCH (09:42)
[2019-09-17] MEDS: VITAMIN D3 1,000 UNIT TABLET PO SCH (09:42)
[2019-09-17] MEDS: DOCUSATE SODIUM 100 MG CAPSULE PO SCH (09:43)
[2019-09-17] MEDS: ASPIRIN 81 MG TAB.CHEW PO SCH (09:43)
[2019-09-17] MEDS: MULTIVIT,THER IRON,CA,FA & MIN 1 TABLET PO SCH (09:43)
[2019-09-17] MEDS: FOLIC ACID 1 MG TABLET PO SCH (09:43)
== END 2019-09-17 13:05 | disposition home or self-care (01) | DRG 305 ==
LOC: ICU 08:29 → ED 08:29 → OBSVTOIN 15:48 → ICU 15:58 → MEDSUR 09-16 22:59
PROVIDERS: ADMIT Internal Medicine; ATTEND Internal Medicine